=== PATIENT | male | born 1945 | race Caucasian/White ===

== ENCOUNTER 2019-03-17 13:19 | Inpatient (IN) ==
[2019-03-17 13:58] LABS: Basophils % 0.2 % (0.0-0.8); Eosinophils % 0.2 % (0.00-10.9); Hematocrit 32.7 VOL% (42.0-52.0); Hemoglobin 11.5 GM/DL (14.0-18.0); Immature Granulocytes % 0.6 %; Immature Granulocytes Absolute 0.05 #; Lymphocytes # 0.8 10*3/uL (1.4-4.0); Lymphocytes % 9.6 % (21.2-54.2); Mean Corpuscular HGB Conc 35.2 GM/DL (32-36); Mean Corpuscular Volume 88.9 FL (87-102); Mean Platelet Volume 9.7 FL (9.6-12.0); Monocytes % 8.2 % (1.7-12.7); Neutrophils % 81.2 % (38.7-73.9); Platelet Count 180 T/CUMM (130-400); Red Blood Count 3.68 MC/CUMM (3.8-5.5); Red Cell Distribution Width 11.7 % (9.3-17.3); White Blood Count 8.1 T/CUMM (4-12)
[2019-03-17 14:14] LABS: Albumin 3.6 G/DL (3.4-5.0); Bilirubin,Total 0.4 MG/DL (0.2-1.0); Calcium 9.3 MG/DL (8.5-10.1); Osmolality,Calculated 262.7 MOS/KG (273-304); Total Protein 7.3 G/DL (6.4-8.3)
[2019-03-17] MEDS ORDERED: ONDANSETRON 4 MG/2 ML VIAL IV STA (14:16)
[2019-03-17] MEDS ORDERED: HYDROmorphone 2 MG/1 ML VIAL IV STA (14:16)
[2019-03-17] MEDS ORDERED: methylPREDNISolone SOD SUC 125 MG/2 ML VIAL IV STA (14:19)
[2019-03-17] MEDS ORDERED: diphenhydrAMINE 50 MG/1 ML VIAL IV STA (14:19)
[2019-03-17 14:34] LABS: Prostate Specific Antigen Diag 1.4 NG/ML (0-4)
[2019-03-17] MEDS ORDERED: NICOTINE 21 MG/24 HR PATCH TRANSDERM PRN (16:12)
[2019-03-17] MEDS ORDERED: chlordiazePOXIDE 25 MG CAPSULE PO PRN (16:12)
[2019-03-17 16:34] LABS: Apearance,Urine CLEAR (Clear); Bilirubin,Urine Negative (Negative); Blood, Urine Negative (Negative); Glucose,Urine (UA) Negative (Negative); Ketones,Urine Negative (Negative); Nitrite,Urine Negative (Negative); Protein,Urine Negative; RBC,Urine 3 /HPF (0-4); Urine Color Yellow (Yellow); Urine Specific Gravity 1.023 (1.001-1.035); Urine Urobilinogen < 2.0 EU/DL (0.2-1.0); WBC,Urine <1 /HPF (0-6)
[2019-03-17] MEDS: ENOXAPARIN 40 MG/0.4 ML SYRINGE SUBCUT SCH (18:04)
[2019-03-17] MEDS: ALBUTEROL/IPRATROPIUM 3 ML NEB RESP TX SCH (22:00)
[2019-03-17] MEDS: MORPHINE 4 MG/1 ML VIAL IV PRN (22:13)
[2019-03-17] MEDS: ONDANSETRON 4 MG/2 ML VIAL IV PRN (22:17)
[2019-03-18] MEDS: ALBUTEROL/IPRATROPIUM 3 ML NEB RESP TX SCH ×4 (00:41→19:33)
[2019-03-18] MEDS: MORPHINE 4 MG/1 ML VIAL IV PRN ×5 (01:53→21:17)
[2019-03-18 04:23] LABS: Hematocrit 30.5 VOL% (42.0-52.0); Hemoglobin 10.6 GM/DL (14.0-18.0); Immature Granulocytes % 1.2 %; Immature Granulocytes Absolute 0.06 #; Lymphocytes # 0.6 10*3/uL (1.4-4.0); Lymphocytes % 11.1 % (21.2-54.2); Mean Corpuscular HGB Conc 34.8 GM/DL (32-36); Mean Corpuscular Volume 88.7 FL (87-102); Mean Platelet Volume 9.7 FL (9.6-12.0); Neutrophils % 83.7 % (38.7-73.9); Platelet Count 179 T/CUMM (130-400); Red Blood Count 3.44 MC/CUMM (3.8-5.5); Red Cell Distribution Width 11.7 % (9.3-17.3); White Blood Count 5.1 T/CUMM (4-12)
[2019-03-18 04:53] LABS: Calcium 8.9 MG/DL (8.5-10.1); Osmolality,Calculated 268.2 MOS/KG (273-304)
[2019-03-18 05:28] LABS: Total Protein (Chem) 7.3 G/DL (6.4-8.3)
[2019-03-18] MEDS: ONDANSETRON 4 MG/2 ML VIAL IV PRN (08:59)
[2019-03-18] MEDS: ENOXAPARIN 40 MG/0.4 ML SYRINGE SUBCUT SCH (17:12)
[2019-03-19] MEDS: ALBUTEROL/IPRATROPIUM 3 ML NEB RESP TX SCH ×4 (01:41→10:50)
[2019-03-19] MEDS: MORPHINE 4 MG/1 ML VIAL IV PRN ×3 (04:37→15:44)
[2019-03-19] MEDS ORDERED: MIDAZOLAM 2 MG/2 ML VIAL ONE (06:58)
[2019-03-19] MEDS ORDERED: PROMETHAZINE 25 MG/1 ML VIAL IM ONE (07:00)
[2019-03-19] MEDS ORDERED: GLYCOPYRROLATE 0.4 MG/2 ML VIAL IM ONE (07:00)
[2019-03-19] MEDS ORDERED: MEPERIDINE 50 MG/1 ML VIAL IM ONE (07:00)
[2019-03-19] MEDS ORDERED: LIDOCAINE 2% VISCOUS 100 ML BOTTLE SWISH/SPIT ONE (07:30)
[2019-03-19] MEDS ORDERED: LIDOCAINE 2% 20 ML VIAL RESP TX ONE (07:30)
[2019-03-19] MEDS ORDERED: LIDOCAINE 1% 20 ML VIAL MISC INJ ONE (07:30)
[2019-03-19] MEDS ORDERED: MIDAZOLAM 2 MG/2 ML VIAL IV ONE (07:30)
[2019-03-19] MEDS ORDERED: SIMVASTATIN 20 MG TABLET PO SCH (09:00)
[2019-03-19] MEDS ORDERED: predniSONE 5 MG TABLET PO SCH (09:00)
[2019-03-19 09:14] LABS: Albumin (SPE) 4.7 G/DL (3.2-5.3); Albumin (SPE) Rel % 64.6 %; Alpha 1 (SPE) 0.3 G/DL (0.1-0.4); Alpha 1 (SPE) Rel % 3.6 %; Alpha 2 (SPE) Rel % 13.4 %; Beta (SPE) 0.7 G/DL (0.5-1.1); Gamma (SPE) 0.6 G/DL (0.7-1.7); Gamma (SPE) Rel % 8.4 %
[2019-03-19 11:01] VITALS: BP 105/61
== END 2019-03-19 16:08 | disposition home or self-care (01) | DRG 167 ==
LOC: N.ED 13:19 → N.EDINP 15:48 → N.4E 16:23
PROVIDERS: ADMIT Internal Medicine Geriatric Medicine; ATTEND Internal Medicine Geriatric Medicine
PROC: BRONCHB (2019-03-19 07:05)